=== PATIENT | female | born 1955 | race Hispanic/Latino ===

== ENCOUNTER 2018-02-18 14:37 | Outpatient (CLI) | payer BC | END 2018-02-18 14:38 | disposition home or self-care (01) | LOC: BICMAMMO 14:37 | PROVIDERS: ATTEND Family Medicine | DX: Z12.31 Encounter for screening mammogram for malignant neoplasm of breast (principal) | CPT/HCPCS: 77063; 77067 ==

== ENCOUNTER 2019-02-21 15:01 | Outpatient (CLI) | payer BC ==
--- NOTE | 2019-02-22 06:48 | MMO ---
Bilateral MAMMO Bilat Screen [facility]. CLINICAL HISTORY: Patient is 64 years old and is seen for screening. The patient has no family history of breast cancer. The patient has no personal history of cancer. VIEWS: The views performed were: bilateral craniocaudal with tomosynthesis and bilateral mediolateral oblique with tomosynthesis. FILMS COMPARED: The present examination has been compared to prior imaging studies performed at [facility] on 02/12/2015, 02/14/2016, 02/16/2017 and 02/18/2018. MAMMOGRAM FINDINGS: There are scattered fibroglandular densities. There are stable benign appearing calcifications seen in both breasts. There are no suspicious masses, suspicious calcifications, or new areas of architectural distortion. IMPRESSION: THERE IS NO MAMMOGRAPHIC EVIDENCE OF MALIGNANCY. A ROUTINE FOLLOW-UP MAMMOGRAM IN 1 YEAR IS RECOMMENDED. THE RESULTS OF THIS EXAM WERE SENT TO THE PATIENT. ACR BI-RADS Category 2 - Benign finding MAMMOGRAPHY NOTE: 1. A negative mammogram report should not delay a biopsy if a dominant of clinically suspicious mass is present. 2. Approximately 10% to 15% of breast cancers are not detected by mammography. 3. Adenosis and dense breasts may obscure an underlying neoplasm. Reported by: LAURA EASLEY MD Electonically Signed: [id number]
== END 2019-02-21 15:02 | disposition home or self-care (01) ==
LOC: BICMAMMO 15:01
PROVIDERS: ATTEND Family Medicine
DX: Z12.31 Encounter for screening mammogram for malignant neoplasm of breast (principal)
CPT/HCPCS: 77063; 77067

== ENCOUNTER 2020-05-15 05:59 | Emergency (ER) | payer BC ==
[2020-05-15] MEDS ORDERED: Ondansetron PF 4 MG/2 ML Vial ONE (06:24)
[2020-05-15] MEDS ORDERED: Morphine 4 MG/ML VIAL ONE (06:24)
[2020-05-15 06:39] LABS: #Eosinphils 0.3 thou/uL (0.0-0.7); #Lymphocytes 1.5 thou/uL (1.20-3.40); #Monocytes 0.7 thou/uL (0.11-0.59); #Neutrophils 6.7 thou/uL (1.40-6.50); %Basophils 0.1 % (0.0-1.0); %Eosinophils 3.3 % (0.0-10.0); %Lymphocytes 16.2 % (21.0-51.0); %Monocytes 7.2 % (0.0-10.0); %Neutrophils 73.3 % (42.0-75.0); Hemoglobin 14.2 g/dL (12.0-16.0); Mean Corpuscular HGB CONC 33.4 g/dL (32.0-36.0); Mean Corpuscular Hemoglobin 29.9 pg (27.0-31.0); Mean Corpuscular Volume 89.5 fL (78.0-98.0); Mean Platelet Volume 11.7 fL (7.4-10.4); Platelet Count 131 thou/uL (130-400); RBC Distribution Width 13.1 % (11.5-14.5); Red Blood Cell (RBC) Count 4.74 mill/uL (4.20-5.40); White Blood Cell (WBC) Count 9.2 thou/uL (4.8-10.8)
[2020-05-15 07:08] LABS: ALT (SGPT) 22 U/L (8-55); AST (SGOT) 25 U/L (5-34); Albumin 3.7 g/dL (3.4-4.8); Alkaline Phosphatase 80 U/L (40-110); Anion Gap 14 mmol/L (10-20); BUN (Urea Nitrogen) 11 mg/dL (9.8-20.1); Calc. Creatinine Clearance 0 mL/min (70-130); Calcium 8.9 mg/dL (7.8-10.44); Carbon Dioxide 28 mmol/L (23-31); Chloride 100 mmol/L (98-107); Estimated GFR-MDRD 76; Globulin 3.3 g/dL (2.4-3.5); Glucose 112 mg/dL (80-115); Lipase 17 U/L (8-78); Potassium 3.5 mmol/L (3.5-5.1); Sodium 138 mmol/L (136-145)
[2020-05-15 07:29] LABS: Bilirubin Negative (Negative); Blood, Urine Negative (Negative); Clarity Clear (Clear); Glucose, Urine (Dipstick) Normal (Negative); Ketone, Urine Negative (Negative); Leukocyte Negative Leu/uL (Negative); Nitrite Negative (Negative); Protein, Urine (Dipstick) Negative (Neg-Trace); Specific Gravity, Urine 1.004 (1.002-1.036); Urobilinogen Normal mg/dL (Less than 2)
--- NOTE | 2020-05-15 07:43 | CT ---
EXAM: CT ABDOMEN AND PELVIS HISTORY: Bilateral lower abdominal pain. COMPARISON: None. Procedure: Multiple contiguous axial images were obtained and a CT of the abdomen and pelvis with IV contrast. C oronal reformats were performed. FINDINGS: Lower Chest: Dependent atelectatic changes Vessels: Normal caliber aorta. No periaortic fat stranding Heart: Normal heart size. No significant pericardial fluid Abdomen: Portal vein:Patent Gallbladder: Surgically absent Liver: within normal limits. Pancreas: within normal limits. Spleen: within normal limits. Adrenals: within normal limits. Kidneys: Symmetric enhancement. No obstructive uropathy. Peritoneum: No ascites or free air, no fluid collection. Bowel: Limited evaluation due to the lack of oral contrast administration. No evidence of bowel obstr uction. Ileocecal junction is unremarkable. Appendix is not appreciated. No secondary signs of appendicitis at the cecal apex.. Scattered fecal material in a nondistended, nondilated colon. There is diverticulosis throughout the colon. There is bowel wall thickening with pericolonic fat stranding involving the distal descending colon and proximal sigmoid colon, compatible with diverticu litis. No evidence of perforation or abscess. There are mildly enlarged adjacent mesenteric lymph nodes, likely reactive. Mesentery and Retroperitoneum: Pericolonic lymphadenopathy as detailed above Abdominal Wall: within normal limits. Pelvis: Reproductive Organs: Reproductive organs are unremarkable. Pelvis: No mass, lymphadenopathy, free air or free fluid. Bladder: within normal limits. Bones: within normal limits. IMPRESSION: 1. Distal descending colon and sigmoid colon diverticulitis. Associated reactive lymphadenopathy in t he mesentery. No abscess or perforation.
[2020-05-15] MEDS ORDERED: Iopamidol-370 76% 500 ML 1 ML ONE (10:43)
== END 2020-05-15 08:20 | disposition home or self-care (01) ==
LOC: ERS 05:59
DX: K57.32 Diverticulitis of large intestine without perforation or abscess without bleeding (principal); I10 Essential (primary) hypertension; R94.5 Abnormal results of liver function studies; Z79.899 Other long term (current) drug therapy
CPT/HCPCS: 74177; 80053; 81003; 83690; 85025; 93005; 96374; 96375; J2270; J2405; Q9967

== ENCOUNTER 2023-03-26 10:23 | Outpatient (CLI) | payer BC | END 2023-03-26 10:24 | disposition home or self-care (01) | LOC: BICMAMMO 10:23 | PROVIDERS: ATTEND Nurse Practitioner Family | DX: Z12.31 Encounter for screening mammogram for malignant neoplasm of breast (principal) | CPT/HCPCS: 77063; 77067 ==

== ENCOUNTER 2024-03-28 14:44 | Outpatient (CLI) | payer BC | END 2024-03-28 14:45 | disposition home or self-care (01) | LOC: BICMAMMO 14:44 | PROVIDERS: ATTEND Nurse Practitioner Family | DX: Z12.31 Encounter for screening mammogram for malignant neoplasm of breast (principal) | CPT/HCPCS: 77067 ==

== ENCOUNTER 2024-07-11 14:26 | Outpatient (CLI) | payer BC | END 2024-07-11 14:27 | disposition home or self-care (01) | LOC: BICMAMMO 14:26 | PROVIDERS: ATTEND Nurse Practitioner Family | DX: Z13.820 Encounter for screening for osteoporosis (principal); M85.89 Other specified disorders of bone density and structure, multiple sites | CPT/HCPCS: 77080 ==

== ENCOUNTER 2025-03-29 14:31 | Outpatient (CLI) | payer BC | END 2025-03-29 14:32 | disposition home or self-care (01) | LOC: BICMAMMO 14:31 | PROVIDERS: ATTEND Nurse Practitioner Family | DX: Z12.31 Encounter for screening mammogram for malignant neoplasm of breast (principal) | CPT/HCPCS: 77063; 77067 ==

== ENCOUNTER 2025-03-31 06:30 | Emergency (ER) | payer BC ==
[2025-03-31] MEDS ORDERED: Lidocaine 1% w/Epinephrine 1:100K 20 ML VIAL ONE (06:47)
[2025-03-31] MEDS ORDERED: cloNIDine 0.1 MG TAB ONE (06:55)
[2025-03-31] MEDS ORDERED: HYDROcodone/Acetaminophen 5/325 mg Tablet ONE (06:57)
== END 2025-03-31 10:28 | disposition home or self-care (01) ==
LOC: ERS 06:30
DX: S02.2XXA Fracture of nasal bones, initial encounter for closed fracture (principal); S81.811A Laceration without foreign body, right lower leg, initial encounter; S80.01XA Contusion of right knee, initial encounter; I10 Essential (primary) hypertension; W01.198A Fall on same level from slipping, tripping and stumbling with subsequent striking against other object, initial encounter; Y93.01 Activity, walking, marching and hiking
CPT/HCPCS: 12004; 70450; 70486; 72125